=== PATIENT | male | born 1975 | race Caucasian/White ===

== ENCOUNTER 2025-05-27 19:14 | Emergency (ER) | payer BC, MEDICAID ==
[~2025-05-27] VITALS: Ht 177.8 cm; Wt 91.0 kg
[~2025-05-27 19:14] MED LIST: GLIP10TA17 MT; LISI10TA26 MT; METF-1150 MT
[2025-05-27 19:16] VITALS: O2SAT 98
[2025-05-27] MEDS: SODIUM CHLORIDE 0.9% 1,000 ML IV ONE (19:48)
[2025-05-27 19:56] LABS: BG DEOXYHEMOGLOBIN 8.8 % (0.0-5.0)
[2025-05-27 20:18] LABS: BASOPHILS % 0.6 % (0.0-2.0); EOSINOPHILS % 5.0 % (0.0-5.0); HEMATOCRIT. 44.5 % (42.0-52.0); HEMOGLOBIN. 15.2 g/dL (14.0-18.0); LYMPHOCYTES % 33.5 % (20.0-50.0); MEAN PLATELET VOLUME 10.2 fl (7.4-10.4); MONOCYTES % 9.8 % (2.0-8.0); NEUTROPHILS % 51.1 % (40.0-76.0); PLATELET 185 x1000/uL (130-400); RED BLOOD CELL COUNT 4.78 mill/uL (4.7-6.1); RED CELL DISTRIBUTION WIDTH 12.7 % (11.6-14.6)
[2025-05-27 20:32] LABS: CREATININE 0.8 mg/dL (0.6-1.3); UREA NITROGEN BLOOD 7 mg/dL (9-23)
[2025-05-27 20:33] LABS: TROPONIN I HIGH SENSITIVITY < 4 ng/L (3.0-53)
[2025-05-27 20:34] LABS: ASPARTATE AMINOTRANSFERASE 26 IU/L (<34); BILIRUBIN DIRECT 0.2 mg/dL (<=3.0); BILIRUBIN TOTAL 0.9 mg/dL (0.1-1.0); PROTEIN TOTAL 7.1 g/dL (6.0-8.3)
[2025-05-27 21:43] VITALS: BP 120/62; PULSE 84; RESP 20; TEMP 36.9; O2SAT 98
[2025-05-27 21:59] LABS: CLARITY URINE CLEAR (CLEAR); GLUCOSE URINE 3+ (NEGATIVE); KETONES URINE TRACE (NEGATIVE); LEUKOCYTE ESTERASE URINE NEGATIVE (NEGATIVE); NITRITE URINE NEGATIVE (NEGATIVE); OCCULT BLOOD URINE NEGATIVE (NEGATIVE); PH URINE 6.5 (4.5-8.0); PROTEIN URINE NEGATIVE (NEGATIVE); SPECIFIC GRAVITY URINE 1.039 (1.005-1.030); UROBILINOGEN URINE 0.2 E.U./dL (0.2-1.0)
[2025-05-27 22:20] LABS: COLOR URINE STRAW (YELLOW)
[2025-05-27 22:41] LABS: BACTERIA URINE NONE SEEN; RBC URINE NONE SEEN /hpf (0-2); SQUAMOUS EPITHELIAL CELL URINE RARE /lpf (RARE/1+); WBC URINE 0-2 /hpf (0-2)
== END 2025-05-27 22:09 | disposition home or self-care (01) ==
LOC: ER 19:14 → CMPBEDREQ 05-28 08:10
DX: E11.65 Type 2 diabetes mellitus with hyperglycemia (principal); I10 Essential (primary) hypertension; Z79.899 Other long term (current) drug therapy; Z79.84 Long term (current) use of oral hypoglycemic drugs
CPT/HCPCS: 99284; 96360; 80076; 80048; 81003; 82010; 82962; 83880; 83605; 83735; 85025; 84484; 36415; 82375; 82803; 93005; J7030